=== PATIENT | female | born 2005 | race Two or more races ===

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

== ENCOUNTER 2023-04-18 17:41 | Emergency (ER) | payer SELFPAY ==
[~2023-04-18] VITALS: Ht 157.5 cm; Wt 65.8 kg
[~2023-04-18 17:41] MED LIST: ACET-8905 PO; AMOX1TAB8 PO; IBUP-2213 PO
[2023-04-18 17:52] VITALS: BP 100/55; PULSE 71; RESP 15; TEMP 97.8; O2SAT 98
[2023-04-18] MEDS ORDERED: KETOROLAC 30 MG/ML VIAL IM ONE (20:55)
[2023-04-18] MEDS ORDERED: IBUP-2213 PO (22:00)
[2023-04-18] MEDS ORDERED: ACET-10509 PO (22:00)
[2023-04-18 22:40] VITALS: BP 100/55; PULSE 71; RESP 15; TEMP 97.8; O2SAT 98
== END 2023-04-18 22:40 | disposition home or self-care (01) ==
LOC: MED 17:41
DX: S93.401A Sprain of unspecified ligament of right ankle, initial encounter (principal); S93.601A Unspecified sprain of right foot, initial encounter; Z79.899 Other long term (current) drug therapy; Z79.1 Long term (current) use of non-steroidal anti-inflammatories (NSAID); Z79.2 Long term (current) use of antibiotics; W01.0XXA Fall on same level from slipping, tripping and stumbling without subsequent striking against object, initial encounter; Y92.89 Other specified places as the place of occurrence of the external cause; Y93.89 Activity, other specified; Y99.8 Other external cause status
CPT/HCPCS: 73590; 73610; 73630; 81025; 96372; 99284; J1885